=== PATIENT | male | born 1940 | race Caucasian/White ===

== ENCOUNTER 2016-11-29 09:13 | Day surgery (SDC) | payer OTHER ==
--- NOTE | ~2016-11-29 | EGD ---
EGD REPORT [facility] [address] [place] [address] NAME: SHAHRAM TENORIO : [birth year] STATUS : REG [facility]#: [id number] AGE: 76 ADM/REG DATE : 11/29/16 MR#: [id number] REPORT SERV DATE: 11/29/16 DICTATED BY: GABY GIANG DATE: 11/29/16 REPORT STATUS : Draft TRANSCRIBED BY: [employer] DATE: 11/29/16 [facility] Patient Name: Shahram Tenorio Date of : 1940 Attending MD: GABY GIANG MD Procedure Date No Time: 11/29/2016 Procedure: Colonoscopy Indications: High risk colon cancer surveillance: Personal history of colonic polyps Referring MD: COLEEN NAJERA Medicines: as per anesthesia Complications: No immediate complications. Procedure: Pre-Anesthesia Assessment: - ASA Grade Assessment: III - A patient with severe systemic disease. After I obtained informed consent, the scope was passed under direct vision. Throughout the procedure, the patient's blood pressure, pulse, and oxygen saturations were monitored continuously. The PCF [id number] was introduced through the anus and advanced to the cecum, identified by appendiceal orifice and ileocecal valve. The colonoscopy was performed without difficulty. The patient tolerated the procedure. The quality of the bowel preparation was adequate to identify polyps. Findings: The perianal and digital rectal examinations were normal. Internal hemorrhoids were found during endoscopy and were mild. Impression: - Internal hemorrhoids. Recommendation: - Continue present medications. Procedure Code(s): --- Professional --- 96628, Colonoscopy, flexible, proximal to splenic flexure; diagnostic, with or without collection of specimen(s) by brushing or washing, with or without colon decompression (separate procedure) Diagnosis Code(s): --- Professional --- K64.8, Other hemorrhoids Z86.010, Personal history of colonic polyps CPT copyright 2013 [employer]. All rights reserved. EGD REPORT [facility] [address] [place]. [address] NAME: SHAHRAM TENORIO : [birth year] STATUS : REG [place] PAT#: [id number] AGE: 76 ADM/REG DATE : 11/29/16 MR#: [id number] REPORT SERV DATE: 11/29/16 DICTATED BY: GABY GIANG. DATE: 11/29/16 REPORT STATUS : Draft TRANSCRIBED BY: [employer] DATE: 11/29/16 The codes documented in this report are preliminary and upon adoption counselor review may be revised to meet current compliance requirements. GABY GIANG MD 11/29/2016 11:12 AM This report has been signed electronically. Number of Addenda: 0 Note Initiated On: 11/29/2016 10:44 AM Scope Withdrawal Time 0 hours 9 minutes 29 seconds [address] [place] [address]
[~2016-11-29 09:13] MED LIST: ASAB PO; FLOMAX4 PO; FOLIC ACID400 MC1 PO; FORTAMET1000 MG PO; GLUCPH PO; LIPITOR40 PO; LOP25 PO; NITROSTAT0.4 MG SL; NORCO1 TA1 PO; NORV25 PO; PRAVACHOL40 MG PO; PRIN2.5 PO; PRIN5 PO; VITAMIN D31000 UNIT PO; VITC500 PO; VITE PO
== END 2016-11-29 23:59 | disposition home or self-care (01) ==
LOC: DMU 09:13
PROVIDERS: Internal Medicine Gastroenterology
PROC: 0DJD8ZZ Inspection of Lower Intestinal Tract, Via Natural or Artificial Opening Endoscopic (ICD-10-PCS; principal; 2016-11-29 10:30)
DX: Z12.11 Encounter for screening for malignant neoplasm of colon (principal); K64.8 Other hemorrhoids; I10 Essential (primary) hypertension; E78.00 Pure hypercholesterolemia, unspecified; N40.0 Benign prostatic hyperplasia without lower urinary tract symptoms; I25.10 Atherosclerotic heart disease of native coronary artery without angina pectoris; I25.2 Old myocardial infarction; E11.9 Type 2 diabetes mellitus without complications; F41.9 Anxiety disorder, unspecified; Z87.19 Personal history of other diseases of the digestive system; Z86.010 Personal history of colon polyps; Z95.1 Presence of aortocoronary bypass graft; Z90.89 Acquired absence of other organs; M19.90 Unspecified osteoarthritis, unspecified site; F32.9 Major depressive disorder, single episode, unspecified; Z98.49 Cataract extraction status, unspecified eye
CPT/HCPCS: 82962